=== PATIENT | female | born 1975 | race Caucasian/White ===

== ENCOUNTER 2022-08-20 14:13 | Inpatient (IN) | payer MEDICAID ==
[~2022-08-20] VITALS: Ht 167.6 cm; Wt 83.9 kg
[2022-08-20 14:20] VITALS: BP_SYST 121
[2022-08-20 16:34] LABS: BASOPHILS % (AUTO) 0.7 % (0.0-2.0); EOSINOPHILS # (AUTO) 0.1 K/uL (0.0-0.4); EOSINOPHILS % (AUTO) 1.4 % (0.0-4.0); HEMOGLOBIN 9.8 g/dL (12.0-16.0); LYMPHOCYTES # (AUTO) 1.6 K/uL (1.0-5.5); LYMPHOCYTES % (AUTO) 32.7 % (20.5-51.5); MEAN CORPUSCULAR HEMOGLOBIN 27 pg (27-31); MEAN CORPUSCULAR HGB CONC 33 % (32-36); MEAN CORPUSCULAR VOLUME 83 fL (79.0-98.0); MONOCYTES # (AUTO) 0.3 K/uL (0.0-1.0); MONOCYTES % (AUTO) 5.8 % (1.7-9.3); NEUTROPHILS # (AUTO) 2.9 K/uL (1.8-7.7); NEUTROPHILS % (AUTO) 59.4 % (40.0-70.0); PLATELET COUNT (AUTO) 263 K/uL (130-430); RED CELL DISTRIBUTION WIDTH 16.4 % (9.0-15.0); WHITE BLOOD COUNT (AUTO) 4.9 K/uL (4.8-10.8)
[2022-08-20 16:58] LABS: ALBUMIN 2.2 g/dL (3.4-4.8); CALCIUM 10.2 mg/dL (8.4-11.0); CREATININE 0.45 mg/dL (0.55-1.30); POTASSIUM 3.6 mmol/L (3.5-5.1); TOTAL BILIRUBIN 0.2 mg/dL (0.0-1.0)
[2022-08-20] MEDS ORDERED: CRAN1CAP17 (19:01)
[2022-08-20] MEDS ORDERED: LOVI40 SQ (19:01)
[2022-08-20] MEDS ORDERED: TYLL650 GT (19:01)
[2022-08-20] MEDS ORDERED: LACT1TAB14 GT (19:01)
[2022-08-20] MEDS ORDERED: SCOP1PAT21 TD (19:01)
[2022-08-20] MEDS ORDERED: LIDOINT TP (19:01)
[2022-08-20] MEDS ORDERED: ONDA-8 GT (19:01)
[2022-08-20] MEDS ORDERED: BUDE6HFA INH (19:01)
[2022-08-20] MEDS ORDERED: DIAZ5TAB4 GT (19:01)
[2022-08-20] MEDS ORDERED: SERT25TA77 GT (19:01)
[2022-08-20] MEDS ORDERED: SENN-22 GT (19:01)
[2022-08-20] MEDS ORDERED: COLL100 GT (19:01)
[2022-08-20] MEDS ORDERED: MELA1LIQ GT (19:01)
[2022-08-20] MEDS ORDERED: GLYC2TAB21 GT (19:01)
[2022-08-20] MEDS ORDERED: CRAN1TAB6 GT (19:01)
[2022-08-20] MEDS ORDERED: INSU100V42 (19:01)
[2022-08-20] MEDS ORDERED: CHLO473M5 GT (19:01)
[2022-08-20] MEDS ORDERED: INSU100V53 SUBCUT (19:01)
[2022-08-20] MEDS ORDERED: MULT-1193 GT (19:01)
[2022-08-20] MEDS ORDERED: IPRA4AER INH (19:01)
[2022-08-20] MEDS ORDERED: PRO40 GT (19:01)
[2022-08-20] MEDS ORDERED: LORazepam 2 MG/ML VIAL IVP PRN (19:30)
[2022-08-20] MEDS ORDERED: MORPHINE 2 MG/ML INJ. SYRINGE IVP PRN ×2 (19:30)
[2022-08-20] MEDS ORDERED: ACETAMINOPHEN 325 MG TABLET PO PRN ×2 (19:30→19:45)
[2022-08-20] MEDS ORDERED: MUPIROCIN 2% TOPICAL OINTMENT 22 GM NS PRN (19:30)
[2022-08-20] MEDS ORDERED: ONDANSETRON HCL 4 MG/2 ML VIAL IVP PRN (19:30)
[2022-08-20] MEDS ORDERED: DEXTROSE 50% JECT 50 ML DISP.SYRIN IVP PRN (19:30)
[2022-08-20] MEDS ORDERED: MAGNESIUM SULFATE 50 ML IV PRN (19:30)
[2022-08-20] MEDS ORDERED: INSULIN LISPRO SLIDING SCALE 100 UNITS/ML, 3 ML VIAL (humaLOG) SUBCUT PRN (19:30)
[2022-08-20] MEDS ORDERED: DOCUSATE SODIUM 100 MG/10 ML UDC PO PRN (20:00)
[2022-08-20] MEDS ORDERED: NACL 0.9% 1,000 ML IV ONE (20:00)
[2022-08-20] MEDS ORDERED: POTASSIUM CHLORIDE 20 MEQ/PKT PACKET PO PRN (20:00)
[2022-08-20 21:15] VITALS: BP_SYST 110
[2022-08-21] VITALS (8 sets, daily range): BP systolic 123–150
[2022-08-21 07:23] LABS: CALCIUM 8.9 mg/dL (8.4-11.0); CREATININE 0.36 mg/dL (0.55-1.30); POTASSIUM 3.3 mmol/L (3.5-5.1)
[2022-08-21 08:29] LABS: BASOPHILS % (AUTO) 0.8 % (0.0-2.0); EOSINOPHILS # (AUTO) 0.1 K/uL (0.0-0.4); EOSINOPHILS % (AUTO) 2.1 % (0.0-4.0); HEMATOCRIT 28.5 % (36-48); HEMOGLOBIN 9.4 g/dL (12.0-16.0); LYMPHOCYTES # (AUTO) 1.5 K/uL (1.0-5.5); MEAN CORPUSCULAR HEMOGLOBIN 27 pg (27-31); MEAN CORPUSCULAR HGB CONC 33 % (32-36); MEAN CORPUSCULAR VOLUME 83 fL (79.0-98.0); MONOCYTES # (AUTO) 0.3 K/uL (0.0-1.0); MONOCYTES % (AUTO) 7.7 % (1.7-9.3); NEUTROPHILS # (AUTO) 1.8 K/uL (1.8-7.7); NEUTROPHILS % (AUTO) 49.4 % (40.0-70.0); PLATELET COUNT (AUTO) 229 K/uL (130-430); RED BLOOD CELL COUNT(AUTO) 3.43 MIL/uL (4.2-6.2); RED CELL DISTRIBUTION WIDTH 16.3 % (9.0-15.0); WHITE BLOOD COUNT (AUTO) 3.7 K/uL (4.8-10.8)
[2022-08-21] MEDS ORDERED: DOCUSATE SODIUM 100 MG/10 ML UDC GT SCH (09:00)
[2022-08-21] MEDS ORDERED: SERTRALINE HCL 50 MG TABLET PO SCH (09:00)
[2022-08-21] MEDS ORDERED: SIMETHICONE 40 MG/0.6 ML ML ONE (09:15)
[2022-08-21] MEDS ORDERED: DIPHENHYDRAMINE INJ 50 MG/ML VIAL ONE (09:15)
[2022-08-21] MEDS ORDERED: fentaNYL CITRATE/PF 100 MCG/2 ML AMP ONE (09:15)
[2022-08-21] MEDS ORDERED: MIDAZOLAM HCL 5 MG/5 ML VIAL ONE (09:15)
[2022-08-21] MEDS ORDERED: CEFAZOLIN 1 GM IVPB PREMIX 50 ML IV ONE (10:00)
[2022-08-21] MEDS ORDERED: PANTOPRAZOLE SODIUM 40 MG/VIAL (PROTONIX) IVP ONE (10:30)
[2022-08-21] MEDS ORDERED: PANTOPRAZOLE SODIUM 40 MG/VIAL (PROTONIX) IVP SCH (21:00)
== END 2022-08-21 21:15 | DRG 252 ==
LOC: SED 14:13 → STU 19:25
PROVIDERS: ADMIT Family Medicine; ATTEND Family Medicine
PROC: 5A1945Z Respiratory Ventilation, 24-96 Consecutive Hours (ICD-10-PCS; 2022-08-20)
PROC: 0W3P8ZZ Control Bleeding in Gastrointestinal Tract, Via Natural or Artificial Opening Endoscopic (ICD-10-PCS; principal; 2022-08-21 09:30)
PROC: 0DH63UZ Insertion of Feeding Device into Stomach, Percutaneous Approach (ICD-10-PCS; 2022-08-21 09:30)
DX: K94.23 Gastrostomy malfunction (principal); E43 Unspecified severe protein-calorie malnutrition; J96.10 Chronic respiratory failure, unspecified whether with hypoxia or hypercapnia; Z99.11 Dependence on respirator [ventilator] status; Z20.822 Contact with and (suspected) exposure to COVID-19; R13.10 Dysphagia, unspecified; D64.9 Anemia, unspecified; R74.01 Elevation of levels of liver transaminase levels; E87.6 Hypokalemia; Z79.4 Long term (current) use of insulin; Z79.899 Other long term (current) drug therapy; Z68.29 Body mass index [BMI] 29.0-29.9, adult
CPT/HCPCS: 36415; 71045; 76376; 80048; 80053; 82962; 83735; 85025; 87081; 94002; 94640; 96360; 99285; C9113; G0378; J0690; J1200; J2250; J2270; J3010